=== PATIENT | female | born 1940 | race Caucasian/White ===

== ENCOUNTER 2021-06-16 09:24 | Outpatient (CLI) | payer MEDICARE | END 2021-06-16 09:25 | disposition home or self-care (01) | LOC: CSHMAMMO 09:24 | PROVIDERS: ATTEND Internal Medicine | DX: M85.89 Other specified disorders of bone density and structure, multiple sites (principal) | CPT/HCPCS: 77080 ==

== ENCOUNTER 2022-01-06 09:58 | Outpatient (CLI) | payer MEDICARE | END 2022-01-06 09:59 | disposition home or self-care (01) | LOC: CSHRAD 09:58 | PROVIDERS: ATTEND Internal Medicine | DX: G31.84 Mild cognitive impairment of uncertain or unknown etiology (principal); R73.01 Impaired fasting glucose; M85.80 Other specified disorders of bone density and structure, unspecified site | CPT/HCPCS: 36415; 71046; 80053; 85025 ==